=== PATIENT | female | born 1940 | race Caucasian/White ===

== ENCOUNTER 2022-02-13 06:44 | Day surgery (SDC) | payer MEDICARE, OTHER ==
[2022-02-12 13:17] LABS: BASOPHILS # (AUTO) 0.1 X10'3 (0-0.2); BASOPHILS % (AUTO) 1.2 % (0-1); EOSINOPHILS % (AUTO) 0.7 % (0-6); HEMATOCRIT 37.7 % (35.0-45.0); HEMOGLOBIN 12.5 g/dl (12.0-16.0); LYMPHOCYTES # (AUTO) 1.2 X10'3 (1.1-4.8); LYMPHOCYTES % (AUTO) 23.1 % (21-51); MEAN CORPUSCULAR HEMOGLOBIN 28.3 PG (27.0-31.0); MEAN CORPUSCULAR HGB CONC 33.1 g/dL (33.0-36.5); MEAN CORPUSCULAR VOLUME 85.6 FL (78-98); MEAN PLATELET VOLUME 7.6 FL (7.4-10.4); MONOCYTES # (AUTO) 0.3 X10'3 (0-0.9); MONOCYTES % (AUTO) 6.3 % (2-12); NEUTROPHILS # (AUTO) 3.6 X10'3 (1.8-7.7); NEUTROPHILS % (AUTO) 68.7 % (42-75); PLATELET COUNT 232 X10'3 (140-440); WHITE BLOOD COUNT 5.2 X10'3 (4.5-11.0)
[2022-02-12 13:23] LABS: APTT 27 SECONDS (22-32)
[2022-02-12 13:25] LABS: ALANINE AMINOTRANSFERASE 18 U/L (12-78); ALBUMIN 3.6 G/DL (3.4-5.0); ALBUMIN/GLOBULIN RATIO 1.1 (1.1-1.5); ALKALINE PHOSPHATASE 112 IU/L (46-116); ANION GAP 7 (8-16); ASPARTATE AMINO TRANSFERASE 19 U/L (10-37); BILIRUBIN,TOTAL 0.3 MG/DL (0.1-1.0); BLOOD UREA NITROGEN 10 MG/DL (7-18); BUN/CREATININE RATIO 11.8 (6.6-38.0); CALCIUM 8.9 MG/DL (8.5-10.1); CHLORIDE 107 MMOL/L (99-107); CREATININE 0.85 MG/DL (0.40-0.90); GLUCOSE 95 MG/DL (70-104); POTASSIUM 3.5 MMOL/L (3.5-5.1); SODIUM 144 MMOL/L (135-145); TOTAL CARBON DIOXIDE 30.3 MMOL/L (24-32); TOTAL PROTEIN 6.8 G/DL (6.4-8.2); eGFR 64 ML/MIN
[~2022-02-13] VITALS: Ht 165.1 cm; Wt 76.8 kg
[2022-02-13] VITALS (13 sets, daily range): BP systolic 106–132; BP diastolic 55–78
[2022-02-13] MEDS ORDERED: LORazepam 0.5 MG tablet PO PRN (07:10)
[2022-02-13] MEDS ORDERED: nitroGLYCERIN 0.4mg SUBLingual tab SL PRN ×2 (07:10→10:55)
[2022-02-13] MEDS ORDERED: normal saline 1,000 ML IV SCH (07:10)
[2022-02-13] MEDS ORDERED: diphenhydrAMINE 25mg capsule PO PRN (07:10)
[2022-02-13] MEDS ORDERED: MEMA5TAB42 PO (08:03)
[2022-02-13] MEDS ORDERED: PANT40TA54 PO (08:03)
[2022-02-13] MEDS ORDERED: LEVO75TA PO (08:03)
[2022-02-13] MEDS ORDERED: SERT-153 PO (08:03)
[2022-02-13] MEDS ORDERED: DONE10TA19 PO (08:03)
[2022-02-13] MEDS ORDERED: CYAN50009 PO (08:03)
--- NOTE | 2022-02-13 08:30 | NUR ---
Pt amb to restroom using FWW, gait steady, void in toilet. Returned to bed.
[2022-02-13] MEDS ORDERED: LIDOcaine 1% 30ml preserv. free vial ONE (08:39)
[2022-02-13] MEDS ORDERED: fentaNYL/PF 50MCG/1 ML 2ML syringe ONE (08:39)
[2022-02-13] MEDS ORDERED: midazolam 1 mg/ML 2ml injection ONE (08:39)
[2022-02-13] MEDS ORDERED: iohexol 350MG/ML 100ml bottle IV ONE ×2 (08:39→09:27)
--- NOTE | 2022-02-13 09:08 | NUR ---
Phoned daughter Sabina to give update that pt has left for her procedure.
[2022-02-13] MEDS ORDERED: HYDROmorphone 1 mg/ml syringe ONE (09:44)
--- NOTE | 2022-02-13 10:35 | NUR ---
Phoned daughter Sabina, gave update re:heart cath findings.
--- NOTE | 2022-02-13 10:40 | NUR ---
Pt grimacing and moaning and c/o right hip pain. Awaiting pharmacy to input orders for pain medication.
[2022-02-13] MEDS ORDERED: normal saline 1000ml 1,000 ML IV SCH (10:55)
[2022-02-13] MEDS ORDERED: HYDROcodone/acetaminophen 10/325mg tab PO PRN (10:55)
[2022-02-13] MEDS ORDERED: HYDROcodone/acetaminophen 5mg/325mg tablet PO PRN (10:55)
--- NOTE | 2022-02-13 12:00 | NUR ---
From pt return from [employer] until 12:00 pt requiring RN to sit at bedside to remind pt to not move left leg and need to lie flat/not sit up in bed. Pt now resting quietly and appears to not be in pain.
--- NOTE | 2022-02-13 13:00 | NUR ---
Pt is poor historian unable to complete past medial history or vaccination review.
== END 2022-02-13 17:05 | disposition home or self-care (01) ==
LOC: SSTAY O 06:44
PROVIDERS: ATTEND Internal Medicine Cardiovascular Disease
DX: R94.39 Abnormal result of other cardiovascular function study (principal); I25.10 Atherosclerotic heart disease of native coronary artery without angina pectoris; Z79.01 Long term (current) use of anticoagulants; Z79.899 Other long term (current) drug therapy; Z98.890 Other specified postprocedural states
CPT/HCPCS: 36415; 71046; 80053; 85025; 85610; 85730; 93458; 99152; 99153; C1769; J1170; J1644; J2250; J3010; J3490; J7030; Q0163; Q9967; A4620; A6258